=== PATIENT | female | born 1945 | race Caucasian/White ===

== ENCOUNTER 2018-03-07 19:45 | Emergency (ER) | payer MEDICARE, OTHER ==
[~2018-03-07] VITALS: Ht 165.1 cm; Wt 74.4 kg
[~2018-03-07 19:45] MED LIST: LEVOTHYROXINE112 MCG PO; LORAZEPAM1 MG PO
[2018-03-07] MEDS ORDERED: CEPHALEXIN500 MG PO (22:34)
== END 2018-03-07 22:59 | disposition home or self-care (01) ==
LOC: ED 19:45
DX: R55 Syncope and collapse (principal); N39.0 Urinary tract infection, site not specified; E03.9 Hypothyroidism, unspecified; Z88.0 Allergy status to penicillin; Z88.1 Allergy status to other antibiotic agents; Z88.6 Allergy status to analgesic agent; Z79.899 Other long term (current) drug therapy
CPT/HCPCS: 80053; 81001; 85025; 87088; 96360; 96361; 99284; J7030

== ENCOUNTER 2018-03-21 07:38 | Emergency (ER) | payer MEDICARE, OTHER ==
[~2018-03-21] VITALS: Ht 165.1 cm; Wt 71.7 kg
[~2018-03-21 07:38] MED LIST changes: +CEPHALEXIN500 MG PO; +K-TAB ER20 MEQ PO; +ONDANSETRON ODT8 MG PO
[2018-03-21] MEDS ORDERED: ATIVAN1 MG PO (12:15)
== END 2018-03-21 12:00 | disposition home or self-care (01) ==
LOC: ED 07:38
DX: F41.9 Anxiety disorder, unspecified (principal); Z88.0 Allergy status to penicillin; Z88.6 Allergy status to analgesic agent; Z88.1 Allergy status to other antibiotic agents; Z88.8 Allergy status to other drugs, medicaments and biological substances; Z79.899 Other long term (current) drug therapy
CPT/HCPCS: 80053; 80176; 85025; 99284; G0480

== ENCOUNTER 2023-06-09 00:59 | Emergency (ER) | payer MEDICARE, OTHER ==
[~2023-06-09] VITALS: Ht 165.1 cm; Wt 68.5 kg
[~2023-06-09 00:59] MED LIST changes: +ALENDRONATE SOD70 MG PO; +ATIVAN0.5 MG PO; +ATIVAN1 MG PO; +CITALOPRAM HBR10 MG PO; +ELIQUIS2.5 MG PO; +LOSARTAN POTASS50 MG PO; +NITROGLYCERIN0.4 MG SL; +TRAZODONE HCL50 MG PO
--- OUTSIDE RECORDS SUMMARY | 2023-06-09 01:02 | XMS ---
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 [place] - 2 Visits in 30 Days CARE PROVIDERS JUAN RAMON VOGT Internal Medicine 03/22/2018-Current PHONE: Unknown Dennis has no Care Guidelines for this patient. Care History Medical/Surgical 03/22/2018 [facility] [place] - Patient is currently established with [facility]. If patient is seen in the ED during business hours. Please contact [facility] at [facility]. Care Recommendation: This patient has had 5 or more Emergency Department visits in the last 12 months.\T\nbsp; Patient requires education on the scope and purpose of the ED as an acute care provider not a Primary Care Provider and should not be utilized for chronic conditions.\T\nbsp; These are guidelines and the provider should exercise clinical judgment when providing care. E.D. VISIT COUNT ([address] 2 [facility] [place] [facility] TOTAL 3 NOTE: Visits indicate total known visits. ED/UCC VISIT TRACKING (12 MO.) 06/09/2023 01:00 [facility] [place] TYPE: Emergency COMPLAINT: - CHEST PRESSURE/SOB 05/26/2023 07:25 [facility] [place] TYPE: Emergency COMPLAINT: - CHEST PAIN, HIGH B/P DIAGNOSES: - Allergy status to analgesic agent - Allergy status to other drugs, medicaments and biological substances - Allergy status to penicillin - Angina pectoris, unspecified - Hypothyroidism, unspecified - Insomnia, unspecified - termite inspector (current) use of anticoagulants - Other chest pain - Other termite inspector (current) drug therapy 05/20/2023 02:11 [facility] [place] TYPE: Emergency DIAGNOSES: - Chest pain, unspecified - Paroxysmal atrial fibrillation - ARM NUMBNESS - Chest Pain INPATIENT VISIT TRACKING (12 MO.) No inpatient visits to display in this time frame [email or web address]
[2023-06-09 01:13] LABS: BASOPHILS 0.3 % (0-2); EOSINOPHILS 2.7 % (0-6); HEMATOCRIT 39.6 % (35.0-50.0); HEMOGLOBIN 13.1 g/dL (12.0-18.0); LYMPHOCYTES 53.5 % (24-44); MCH 32.2 (27-36); MCHC 33.2 g/dl (30-36); MONOCYTES 6.9 % (0-12); NEUTROPHILS 36.6 % (39-80); PLATELET COUNT 254 K/uL (140-440); RBC 4.08 M/ul (4.3-5.7); RDW 13.3 (10.5-15.0)
[2023-06-09 01:23] LABS: INR 1.12 (0.80-1.30)
[2023-06-09 01:35] LABS: ALBUMIN 3.5 g/dL (3.4-5.0); ALBUMIN/GLOBULIN RATIO 1.13 (1.1-2.4); ANION GAP 13.4 (7-21); BILIRUBIN, TOTAL 0.3 ng/dL (0.2-1.0); BUN/CREATININE RATIO 21.91 (6.0-28.6); CALCIUM 8.8 mg/dL (8.5-10.1); CREATININE, SERUM 0.73 mg/dL (0.55-1.02); MAGNESIUM 1.8 mg/dL (1.8-2.4); POTASSIUM 3.4 mmol/L (3.5-5.1); PROTEIN, TOTAL 6.6 g/dL (6.4-8.2)
[2023-06-09 02:38] LABS: INFLUENZA B NAA NEGATIVE (NEGATIVE); RESPIRATORY SYNCYTIAL VIR NAA NEGATIVE (NEGATIVE)
[2023-06-09] MEDS ORDERED: CARDIZEM30 MG PO (05:04)
[2023-06-09] MEDS ORDERED: VISTARIL25 MG PO (05:04)
[2023-06-09 05:26] VITALS: BP 123/70
--- NOTE | 2023-06-10 12:36 | EKG ---
[facility] [address] [facility] [address] [facility] [place] [address] Signed Atrial fibrillation Right bundle branch block Abnormal ECG When compared with ECG of 26-MAY-2023 07:24, Atrial fibrillation has replaced Sinus rhythm Confirmed by GHASSAN FISH MD ([id number]) on 06/10/2023 12:36:28 PM Electronically Signed By: GHASSAN FISH 06/10/23 1236 PATIENT NAME: ISMAEL CHAVEZ Electrocardiogram DATE OF : 41 PHYSICIAN: GHASSAN FISH REPORT #: [id number] REPORT IS CONFIDENTIAL AND NOT TO BE RELEASED WITHOUT AUTHORIZATION
--- NOTE | 2023-06-10 12:37 | EKG ---
[facility] [address] [facility] [place] [address] Signed Normal sinus rhythm Right bundle branch block Abnormal ECG When compared with ECG of 09-JUN-2023 00:59, (Unconfirmed) Sinus rhythm has replaced Atrial fibrillation Confirmed by GHASSAN FISH MD ([id number]) on 06/10/2023 12:36:46 PM Electronically Signed By: GHASSAN FISH 06/10/23 1236 PATIENT NAME: KTAHYISMAEL Electrocardiogram DATE OF : 41 PHYSICIAN: GHASSAN FISH REPORT #: [id number] REPORT IS CONFIDENTIAL AND NOT TO BE RELEASED WITHOUT AUTHORIZATION
== END 2023-06-09 05:49 | disposition home or self-care (01) ==
LOC: ED 00:59
PROVIDERS: Family Medicine
DX: I48.91 Unspecified atrial fibrillation (principal); F41.9 Anxiety disorder, unspecified; E03.9 Hypothyroidism, unspecified; Z20.822 Contact with and (suspected) exposure to COVID-19; Z79.01 Long term (current) use of anticoagulants; Z79.899 Other long term (current) drug therapy; Z88.0 Allergy status to penicillin; Z88.6 Allergy status to analgesic agent; Z88.1 Allergy status to other antibiotic agents; Z88.8 Allergy status to other drugs, medicaments and biological substances
CPT/HCPCS: 36415; 71045; 80053; 83735; 83880; 84484; 85025; 85379; 85610; 87502; 93005; 93010; C9803; J2060; Q0177; U0002

== ENCOUNTER 2025-05-05 09:29 | Emergency (ER) | payer MEDICARE, OTHER ==
[~2025-05-05] VITALS: Ht 165.1 cm; Wt 62.7 kg
[~2025-05-05 09:29] MED LIST changes: +CARDIZEM30 MG PO; +PROTONIX20 MG PO; +VISTARIL25 MG PO
[2025-05-05 09:59] LABS: BASOPHILS 0.3 % (0.1-1.2); EOSINOPHILS 1.6 % (0.7-5.8); LYMPHOCYTES 35.2 % (19.3-51.7); MCH 32.5 PG (25.6-32.2); MCHC 33.8 g/dL (32.2-35.5); MCV 96.0 fL (79.4-94.8); MONOCYTES 11.4 % (4.7-12.5); NEUTROPHILS 51.1 % (34.0-71.1); RBC 4.25 M/uL (3.93-5.22)
[2025-05-05] MEDS ORDERED: IRBESARTAN150 MG (10:04)
[2025-05-05 10:24] LABS: ALT (SGPT) 18.0 U/L (14-59); AST (SGOT) 15.0 U/L (15-37); GLOMERULAR FILTRATION RATE,EST 74.0 mL/min (>60); PROTEIN, TOTAL 6.7 g/dL (6.4-8.2); TSH, 3RD GENERATION 2.858 uIU/mL (0.358-3.740); UREA NITROGEN 25.0 mg/dL (7-18)
[2025-05-05 19:15] VITALS: BP 154/83
--- NOTE | 2025-05-06 23:20 | EKG ---
[facility] [address] [facility] [place] [address] Signed Atrial fibrillation with a competing junctional pacemaker with premature ventricular or aberrantly conducted complexes Right bundle branch block Abnormal ECG When compared with ECG of 12-JUN-2023 09:03, Atrial fibrillation is now present Confirmed by Kristan Rodríguez MD () on 05/06/2025 11:20:16 PM Electronically Signed By: KRISTAN RODRÍGUEZ MD 05/06/25 2320 PATIENT NAME: ISMAEL CHAVEZ Electrocardiogram DATE OF : 41 PHYSICIAN: KRISTAN RODRÍGUEZ MD REPORT #: [id number] REPORT IS CONFIDENTIAL AND NOT TO BE RELEASED WITHOUT AUTHORIZATION
== END 2025-05-05 20:10 | disposition short-term general hospital (02) ==
LOC: ED 09:29
PROVIDERS: Emergency Medicine
DX: R55 Syncope and collapse (principal); R00.1 Bradycardia, unspecified; I48.91 Unspecified atrial fibrillation; E03.9 Hypothyroidism, unspecified; Z88.0 Allergy status to penicillin; Z88.6 Allergy status to analgesic agent; Z88.1 Allergy status to other antibiotic agents; Z88.8 Allergy status to other drugs, medicaments and biological substances; Z79.890 Hormone replacement therapy; Z79.83 Long term (current) use of bisphosphonates; Z79.01 Long term (current) use of anticoagulants; Z79.899 Other long term (current) drug therapy
CPT/HCPCS: 36415; 80053; 83735; 84439; 84443; 84484; 85025; 93005; 93010; 99285

== ENCOUNTER 2025-05-16 11:36 | Emergency (ER) | payer MEDICARE, OTHER ==
[~2025-05-16] VITALS: Ht 165.1 cm; Wt 67.0 kg
[~2025-05-16 11:36] MED LIST changes: +IRBESARTAN150 MG
[2025-05-16 12:10] LABS: BASOPHILS 0.3 % (0.1-1.2); EOSINOPHILS 1.8 % (0.7-5.8); LYMPHOCYTES 18.2 % (19.3-51.7); MCH 31.9 PG (25.6-32.2); MCHC 33.0 g/dL (32.2-35.5); MCV 96.6 fL (79.4-94.8); MONOCYTES 7.9 % (4.7-12.5); NEUTROPHILS 71.4 % (34.0-71.1); RBC 4.42 M/uL (3.93-5.22)
[2025-05-16 12:30] LABS: ALT (SGPT) 11.0 U/L (14-59); AST (SGOT) 17.0 U/L (15-37); GLOMERULAR FILTRATION RATE,EST 89.0 mL/min (>60); PROTEIN, TOTAL 7.0 g/dL (6.4-8.2); UREA NITROGEN 17.0 mg/dL (7-18)
[2025-05-16] MEDS ORDERED: SODIUM CHLORIDE 0.9% 1,000 ML IV PRN (12:45)
[2025-05-16 13:31] LABS: BLOOD/HGB, URINE TRACE-I (Negative); KETONE, URINE NEGATIVE (Negative); LEUK ESTERASE, URINE NEGATIVE (negative); NITRITE, URINE NEGATIVE (negative)
[2025-05-16 13:47] LABS: BACTERIA, URINE NONE SEEN /hpf (negative); CASTS, URINE NONE SEEN \\lpf; CRYSTALS, URINE NONE SEEN (0-1+); EPITHELIAL CELLS, URINE SQUAMOUS 1+ /lpf (0-1+); REFLEX CULTURE, URINE No (No)
[2025-05-16 14:12] VITALS: BP 145/81
--- NOTE | 2025-05-16 18:06 | EKG ---
[facility] [address] [facility] [place] [address] Signed Normal sinus rhythm Right bundle branch block Abnormal ECG When compared with ECG of 05-MAY-2025 09:58, Sinus rhythm has replaced Atrial fibrillation Nonspecific T wave abnormality no longer evident in Inferior leads Confirmed by NADIA FANG MD ([id number]) on 05/16/2025 6:06:02 PM Electronically Signed By: NADIA FANG 05/16/25 1806 PATIENT NAME: KATHYISMAEL Electrocardiogram DATE OF : 41 PHYSICIAN: NADIA FANG REPORT #: [id number] REPORT IS CONFIDENTIAL AND NOT TO BE RELEASED WITHOUT AUTHORIZATION
== END 2025-05-16 14:14 | disposition home or self-care (01) ==
LOC: ED 11:36
PROVIDERS: Emergency Medicine
DX: R42 Dizziness and giddiness (principal); E03.9 Hypothyroidism, unspecified; I48.91 Unspecified atrial fibrillation; Z79.899 Other long term (current) drug therapy; Z88.0 Allergy status to penicillin; Z88.1 Allergy status to other antibiotic agents; Z88.8 Allergy status to other drugs, medicaments and biological substances
CPT/HCPCS: 36415; 80053; 81001; 83735; 84484; 85025; 93005; 93010; 99284; J7030